=== PATIENT | male | born 1945 | race Caucasian/White ===

== ENCOUNTER 2022-12-24 03:37 | Emergency (ER) | payer MEDICARE, OTHER | END 2022-12-24 04:45 | disposition home or self-care (01) | LOC: LB.ED 03:37 | DX: R04.0 Epistaxis (principal); E11.9 Type 2 diabetes mellitus without complications; I10 Essential (primary) hypertension; E78.5 Hyperlipidemia, unspecified; Z79.4 Long term (current) use of insulin; Z79.899 Other long term (current) drug therapy | CPT/HCPCS: 99283 ==